=== PATIENT | male | born 1980 | race Caucasian/White ===

== ENCOUNTER 2017-05-09 23:35 | Emergency (ER) | payer BC, OTHER ==
[2017-05-09 23:59] VITALS: RESP 20
[2017-05-10] MEDS ORDERED: ACETAMINOPHEN TAB 325 MG TAB PO STA (01:35)
[2017-05-10] MEDS ORDERED: DIPH,PERTUS(ACELL)TETVAC-LF 0.5 ML VIAL IM ONE (01:35)
[2017-05-10] MEDS ORDERED: TOPICAL SKIN ADHESIVE 1 EACH AMP TOPICAL ONE (01:35)
[2017-05-10] MEDS ORDERED: IBUPROFEN 600 MG TAB PO STA (01:35)
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
--- NOTE | 2017-05-10 03:22 | CT ---
EXAMINATION TYPE: CT facial bones wo con DATE OF EXAM: 05/10/2017 COMPARISON: NONE HISTORY: nasal bone pain CT DLP: 679.30 mGycm Automated exposure control for dose reduction was used. TECHNIQUE: CT scan of the sinuses is performed without contrast, axial images are obtained, coronal r eformatted images are also reviewed. FINDINGS: There is minimal mucosal thickening at the floor of the maxillary sinuses. There is no evid ence of a blowout fracture. Orbital margins are intact. Maxilla is intact. Zygomatic arches appear no rmal. There is a comminuted fracture of the nasal bone. The mandibular ring is intact. There is no evidence of orbital mass. Temporomandibular joints are intact. Visualized temporal bones appear normal. IMPRESSION: Minimal maxillary sinusitis. Comminuted nasal bone fracture.
[2017-05-10 04:03] VITALS: BP 148/80; PULSE 95; TEMP 97
== END 2017-05-10 04:03 | disposition home or self-care (01) ==
LOC: EC 23:35
DX: S02.2XXA Fracture of nasal bones, initial encounter for closed fracture (principal); S01.21XA Laceration without foreign body of nose, initial encounter; Z23 Encounter for immunization; Z87.891 Personal history of nicotine dependence; Y04.0XXA Assault by unarmed brawl or fight, initial encounter; Y92.838 Other recreation area as the place of occurrence of the external cause
CPT/HCPCS: 12011; 70486; 90471; 90715; 99284